=== PATIENT | male | born 2000 | race Caucasian/White ===

== ENCOUNTER 2018-03-29 19:22 | Emergency (ER) | payer OTHER ==
[~2018-03-29] VITALS: Ht 182.9 cm; Wt 98.9 kg
[2018-03-29 21:12] VITALS: BP 140/80
== END 2018-03-29 21:44 | disposition home or self-care (01) ==
LOC: ER 19:22
DX: S33.5XXA Sprain of ligaments of lumbar spine, initial encounter (principal); X50.0XXA Overexertion from strenuous movement or load, initial encounter; Y93.89 Activity, other specified; Y99.8 Other external cause status; Y92.89 Other specified places as the place of occurrence of the external cause
CPT/HCPCS: 72131